=== PATIENT | female | born 1985 | race Hispanic/Latino ===

== ENCOUNTER 2022-05-15 14:38 | Day surgery (SDC) | payer SELFPAY ==
[2022-05-15] MEDS ORDERED: hydrALAZINE 20 MG/ML VIAL SLOW IVP PRN (17:11)
[2022-05-15 17:24] VITALS: BMI 24.0
[2022-05-15 20:15] LABS: Mean Corpuscular HGB CONC 35.4 g/dL (32.0-36.0); Mean Corpuscular Hemoglobin 33.5 pg (27.0-33.0); Mean Corpuscular Volume 94.7 fl (81.6-98.3); Mean Platelet Volume 9.5 fl (7.4-10.4); Platelet Count 214 10x3/uL (150-450); RBC Distribution Width 12.6 % (11.5-14.5); Red Blood Cell (RBC) Count 4.18 10x6/uL (3.90-5.03)
[2022-05-15 20:29] LABS: ALT (SGPT) 9 U/L (8-55); AST (SGOT) 21 U/L (5-34); Albumin 3.8 g/dL (3.5-5.0); Alkaline Phosphatase 154 U/L (40-110); Anion Gap 11 mmol/L (10-20); BUN (Urea Nitrogen) 7 mg/dL (7.0-18.7); Bilirubin, Total 0.6 mg/dL (0.2-1.2); Calc. Creatinine Clearance 124 mL/min (70-130); Calcium 8.7 mg/dL (7.8-10.44); Carbon Dioxide 22 mmol/L (22-29); Chloride 105 mmol/L (98-107); Estimated GFR 119; Globulin 3.6 g/dL (2.4-3.5); Glucose 70 mg/dL (70-105); Potassium 3.4 mmol/L (3.5-5.1); Protein, Total 7.4 g/dL (6.0-8.3); Sodium 135 mmol/L (136-145)
[2022-05-15 20:48] LABS: Syphilis Antibody Nonreactive (Nonreactive); Syphilis Antibody Index 0.05 S/CO (<1.00 Non-Reactive)
[2022-05-15 20:52] LABS: HIV (1/2) Antibody/Antigen Non-Reactive (NonReactive); HIV 1/2 INDEX 0.11 S/CO (<1.00)
[2022-05-15 20:55] LABS: Bilirubin Neg (Negative); Blood, Urine Negative (Negative); Glucose, Urine (Dipstick) Normal (Negative); Ketone, Urine 5 mg/dL (Negative); Leukocyte Negative (Negative); Nitrite Negative (Negative); Protein, Urine (Dipstick) Negative (Neg-Trace); Urobilinogen Normal mg/dL (Less than 2); pH, Urine 6.5 (5.0-9.0)
[2022-05-15 21:09] LABS: Bacteria/HPF 2+ HPF (None Seen); Mucous/LPF Rare LPF (<2+); RBC/HPF None Seen HPF (0-3); Transitional Epithelial 0-3 HPF (None Seen); WBC/HPF 0-3 HPF (0-3)
[2022-05-16 02:20] LABS: HBSAB Concentration 25.82 mIU/mL; Hep B Surf AB Reactive (NonReactive)
[2022-05-16 13:23] LABS: Chlamydia by PCR Not Detected (NotDetected); GC by PCR Not Detected (NotDetected)
[2022-05-16 20:32] LABS: Group B Streptococcus by PCR Not Detected (NotDetected)
== END 2022-05-15 20:25 | disposition home or self-care (01) ==
LOC: CSHLD/OP 14:38
PROVIDERS: ATTEND Obstetrics & Gynecology
DX: O47.1 False labor at or after 37 completed weeks of gestation (principal); Z3A.37 37 weeks gestation of pregnancy
CPT/HCPCS: 36415; 76815; 80053; 81001; 85027; 86706; 86762; 86780; 86850; 86900; 86901; 87389; 87491; 87591; 87653; 87661; 99285

== ENCOUNTER 2022-06-06 06:48 | Inpatient (IN) | payer MEDICAID, SELFPAY ==
[2022-06-06] MEDS ORDERED: hydrALAZINE 20 MG/ML VIAL SLOW IVP PRN ×3 (07:38→18:08)
[2022-06-06] MEDS ORDERED: Bupivacaine 0.25% HCL 30 ML VIAL ONE (08:00)
[2022-06-06] MEDS ORDERED: Acetaminophen 325 MG TAB PO SCH (09:00)
[2022-06-06 09:46] VITALS: BMI 27.4
[2022-06-06] MEDS ORDERED: Ondansetron PF 4 MG/2 ML Vial IVP PRN ×2 (10:08→13:11)
[2022-06-06] MEDS ORDERED: Lidocaine 1% (PF) 30 ML VIAL SC PRN (10:08)
[2022-06-06] MEDS ORDERED: Promethazine HCl 25 MG/ML VIAL IM PRN ×2 (10:08→13:11)
[2022-06-06] MEDS ORDERED: Lactated Ringer's 1,000 ML IV SCH (10:15)
[2022-06-06] MEDS ORDERED: Lactated Ringer's 500 ML IV SCH (10:15)
[2022-06-06] MEDS ORDERED: NS w/ Oxytocin 30 units 500 ML IV SCH (10:15)
[2022-06-06 11:08] LABS: #Monocytes 0.8 10x3/uL (0.0-1.1); #Neutrophils 9.3 10x3/uL (1.5-8.4); %Basophils 0.3 % (0.0-2.0); %Eosinophils 0.2 % (0.0-6.0); %Lymphocytes 12.3 % (18.0-47.0); %Monocytes 6.6 % (0.0-10.0); %Neutrophils 79.9 % (40.0-75.0); Hemoglobin 13.8 g/dL (12.0-15.5); Mean Corpuscular Hemoglobin 32.8 pg (27.0-33.0); Mean Corpuscular Volume 93.6 fl (81.6-98.3); Mean Platelet Volume 10.3 fl (7.4-10.4); Platelet Count 253 10x3/uL (150-450); RBC Distribution Width 12.7 % (11.5-14.5); Red Blood Cell (RBC) Count 4.21 10x6/uL (3.90-5.03); White Blood Cell (WBC) Count 11.7 10x3/uL (3.5-10.5)
[2022-06-06 11:28] LABS: ALT (SGPT) 16 U/L (8-55); AST (SGOT) 21 U/L (5-34); Albumin 3.7 g/dL (3.5-5.0); Alkaline Phosphatase 193 U/L (40-110); Anion Gap 15 mmol/L (10-20); BUN (Urea Nitrogen) 9 mg/dL (7.0-18.7); Bilirubin, Total 0.5 mg/dL (0.2-1.2); Calc. Creatinine Clearance 144 mL/min (70-130); Calcium 8.8 mg/dL (7.8-10.44); Carbon Dioxide 19 mmol/L (22-29); Chloride 108 mmol/L (98-107); Estimated GFR 118; Globulin 3.2 g/dL (2.4-3.5); Glucose 97 mg/dL (70-105); Potassium 3.8 mmol/L (3.5-5.1); Protein, Total 6.9 g/dL (6.0-8.3); Sodium 138 mmol/L (136-145)
[2022-06-06 11:42] LABS: HBSAg Index 0.15 S/CO (0-0.99); Hep B Surf Ag Non-Reactive S/CO (NonReactive)
[2022-06-06 11:44] LABS: Syphilis Antibody Nonreactive (Nonreactive); Syphilis Antibody Index 0.04 S/CO (<1.00 Non-Reactive)
[2022-06-06 11:53] LABS: SARS-CoV-2 NAA Rapid Test Not Detected (NotDetected)
[2022-06-06] MEDS ORDERED: Fentanyl 2 mcg/Bup 0.1% Cadd 100 ML ONE (12:39)
[2022-06-06] MEDS ORDERED: Acetaminophen 325 MG TAB PO PRN (13:11)
[2022-06-06] MEDS ORDERED: ePHEDrine Sulfate 50 MG/10 ML VIAL SLOW IVP PRN (13:11)
[2022-06-06] MEDS ORDERED: diphenhydrAMINE 50 MG/ML VIAL IVP PRN (13:11)
[2022-06-06] MEDS ORDERED: Naloxone HCl 0.4 mg/ml Vial IVP PRN ×2 (13:11)
[2022-06-06] MEDS ORDERED: Moisturizing Cream (Eucerin) 113 GM JAR TOP PRN (13:11)
[2022-06-06] MEDS ORDERED: Fentanyl 2 mcg/Bupivacaine 0.1% Cassette 100 ML EPIDURAL SCH (13:15)
[2022-06-06] MEDS ORDERED: Communication Order-Pharmacy FS SCH (13:15)
[2022-06-06] MEDS ORDERED: Lactated Ringer's 500 ML IV PRN (13:22)
[2022-06-06] MEDS ORDERED: Misoprostol 200 MCG TAB ONE (15:15)
[2022-06-06] MEDS ORDERED: Boostrix 0.5 ML (Tdap) VIAL (>/=7 yrs of age) IM ONE (18:08)
[2022-06-06] MEDS ORDERED: Milk Of Magnesia 30 ML UDCUP PO PRN (18:08)
[2022-06-06] MEDS ORDERED: Bisacodyl 10 MG SUPP PR PRN (18:08)
[2022-06-06] MEDS ORDERED: Lanolin Ointment 7 GM TUBE TOP PRN (18:08)
[2022-06-06] MEDS ORDERED: Ferrous Sulfate 325 MG TAB PO SCH (19:00)
[2022-06-06] MEDS: Docusate 100 MG CAP PO SCH (19:37)
[2022-06-06] MEDS: Ibuprofen 800 MG TAB PO SCH (21:47)
[2022-06-07] MEDS: Ibuprofen 800 MG TAB PO SCH ×2 (05:54→14:28)
[2022-06-07 07:33] VITALS: TEMP 98
[2022-06-07] MEDS ORDERED: Ferrous Sulfate 325 MG TAB PO SCH (08:00)
[2022-06-07] MEDS: Docusate 100 MG CAP PO SCH (08:05)
[2022-06-07] MEDS ORDERED: Prenatal Vitamin 1 TAB PO SCH (09:00)
[2022-06-07 11:37] VITALS: BP 101/62
== END 2022-06-07 18:55 | disposition home or self-care (01) | DRG 807 ==
LOC: CSHLD/OP 06:48 → CSHLD 13:17 → CSHPP 18:00
PROVIDERS: ADMIT Student in an Organized Health Care Education/Training Program; ATTEND Student in an Organized Health Care Education/Training Program
PROC: 10E0XZZ Delivery of Products of Conception, External Approach (ICD-10-PCS; principal; 2022-06-06)
PROC: 0KQM0ZZ Repair Perineum Muscle, Open Approach (ICD-10-PCS; 2022-06-06)
DX: O76 Abnormality in fetal heart rate and rhythm complicating labor and delivery (principal); Z37.0 Single live birth; Z20.822 Contact with and (suspected) exposure to COVID-19; Z3A.39 39 weeks gestation of pregnancy; O70.1 Second degree perineal laceration during delivery; O69.81X0 Labor and delivery complicated by cord around neck, without compression, not applicable or unspecified
CPT/HCPCS: 51702; 80053; 85025; 86780; 86850; 86900; 86901; 87340; 99285; S0020; U0002

== ENCOUNTER 2025-04-26 19:00 | Inpatient (IN) | payer MEDICAID, OTHER ==
[2025-04-26 20:57] VITALS: BMI 26.9
[2025-04-26] MEDS ORDERED: hydrALAZINE 20 MG/ML VIAL SLOW IVP PRN (21:43)
[2025-04-26] MEDS ORDERED: Lidocaine 1% (PF) 30 ML VIAL SC PRN (21:43)
[2025-04-26] MEDS ORDERED: Diphenoxylate HCl/Atropine Tablet PO PRN (21:43)
[2025-04-26] MEDS ORDERED: Ondansetron PF 4 MG/2 ML Vial IVP PRN (21:43)
[2025-04-26] MEDS ORDERED: Acetaminophen 500 MG TAB PO PRN (21:43)
[2025-04-26] MEDS ORDERED: Carboprost 250 MCG/ML AMP IM PRN (21:43)
[2025-04-26] MEDS ORDERED: Tranexamic Acid 1,000 MG/10 ML VIAL IVP PRN (21:43)
[2025-04-26] MEDS ORDERED: Methylergonovine 0.2 MG/ML VIAL IM PRN (21:43)
[2025-04-26] MEDS ORDERED: Oxytocin 30 units/NS 500 ML 500 ML IV SCH (21:45)
[2025-04-26 22:00] LABS: Hematocrit 38.0 % (34.9-44.5); Hemoglobin 13.3 g/dL (12.0-15.5); Mean Corpuscular Hemoglobin 33.0 pg (27.0-33.0); Mean Corpuscular Volume 94.3 fL (81.6-98.3); Platelet Count 195 10x3/uL (150-450); Red Blood Cell (RBC) Count 4.03 10x6/uL (3.90-5.03); White Blood Cell (WBC) Count 8.49 10x3/uL (3.5-10.5)
[2025-04-26 22:24] LABS: Hep B Surf Ag - L&D Non-Reactive S/CO (NonReactive)
[2025-04-26 22:25] LABS: Syphilis Antibody Index 0.12 S/CO (<1.00 Non-Reactive)
[2025-04-27] MEDS: fentaNYL/Ropivacaine Epidural 100 ML ONE (08:45)
[2025-04-27] MEDS ORDERED: Ondansetron PF 4 MG/2 ML Vial IVP PRN (10:04)
[2025-04-27] MEDS ORDERED: diphenhydrAMINE 50 MG/ML VIAL IVP PRN (10:04)
[2025-04-27] MEDS ORDERED: Communication Order-Pharmacy FS SCH (10:15)
[2025-04-27] MEDS ORDERED: fentaNYL 2 mcg/Ropivacaine 0.2% Epidural 100 ML CADD EPIDURAL SCH (10:15)
[2025-04-27] MEDS: Oxytocin 30 units/NS 500 ML 500 ML IV SCH (11:05)
[2025-04-27] MEDS: Ibuprofen 800 MG TAB PO PRN (15:12)
[2025-04-27] MEDS ORDERED: Milk Of Magnesia 30 ML UDCUP PO PRN (16:00)
[2025-04-27] MEDS ORDERED: Bisacodyl 10 MG SUPP PR PRN (16:00)
[2025-04-27] MEDS ORDERED: Benzocaine-Menthol 82.5 ML CAN TOP PRN (16:00)
[2025-04-27] MEDS ORDERED: Lanolin Ointment 7 GM TUBE TOP PRN (16:00)
[2025-04-27] MEDS ORDERED: hydrALAZINE 20 MG/ML VIAL SLOW IVP PRN (16:00)
[2025-04-27] MEDS: Ferrous Sulfate 325 MG TAB PO SCH (16:29)
[2025-04-27] MEDS: Ibuprofen 800 MG TAB PO SCH (21:02)
[2025-04-28] MEDS: Acetaminophen 325 MG TAB PO PRN (00:08)
[2025-04-28] MEDS: Boostrix 0.5 ML (Tdap) VIAL (>/=7 yrs of age) IM ONE (05:19)
[2025-04-28] MEDS ORDERED: Bupivacaine 0.25% HCL 30 ML VIAL ONE (10:00)
[2025-04-28 12:28] VITALS: BP 109/58; TEMP 97.8
== END 2025-04-28 16:10 | disposition home or self-care (01) | DRG 807 ==
LOC: CSHLD 20:09 → CSHPP 04-27 15:59
PROVIDERS: ADMIT Family Medicine; ATTEND Family Medicine
PROC: 10E0XZZ Delivery of Products of Conception, External Approach (ICD-10-PCS; principal; 2025-04-26)
PROC: 0KQM0ZZ Repair Perineum Muscle, Open Approach (ICD-10-PCS; 2025-04-26)
PROC: 4A1HXCZ Monitoring of Products of Conception, Cardiac Rate, External Approach (ICD-10-PCS; 2025-04-26)
PROC: 3E0DXGC Introduction of Other Therapeutic Substance into Mouth and Pharynx, External Approach (ICD-10-PCS; 2025-04-26)
DX: O99.284 Endocrine, nutritional and metabolic diseases complicating childbirth (principal); Z37.0 Single live birth; E03.9 Hypothyroidism, unspecified; O70.1 Second degree perineal laceration during delivery; Z3A.39 39 weeks gestation of pregnancy; Z79.899 Other long term (current) drug therapy; Z79.890 Hormone replacement therapy
CPT/HCPCS: 51702; 85027; 86780; 86850; 86900; 86901; 87340; J0665; J2590; J7120